=== PATIENT | female | born 1995 | race Two or more races ===

== ENCOUNTER 2021-02-15 14:15 | Outpatient (CLI) | payer OTHER | END 2021-02-15 14:26 | disposition home or self-care (01) | LOC: SONOGRAMA 14:15 | PROVIDERS: ATTEND Surgery | DX: R19.09 Other intra-abdominal and pelvic swelling, mass and lump (principal) ==

== ENCOUNTER 2021-05-29 08:00 | Outpatient (CLI) | payer OTHER | END 2021-05-29 08:30 | disposition home or self-care (01) | LOC: PPH VACUNA 08:00 | PROVIDERS: ATTEND Emergency Medicine Pediatric Emergency Medicine | DX: Z23 Encounter for immunization (principal) ==

== ENCOUNTER 2021-06-07 08:00 | Outpatient (CLI) | payer OTHER | END 2021-06-07 08:30 | disposition home or self-care (01) | LOC: PPH VACUNA 08:00 | PROVIDERS: ATTEND Emergency Medicine Pediatric Emergency Medicine | DX: Z23 Encounter for immunization (principal) ==

== ENCOUNTER 2021-08-11 07:45 | Outpatient (CLI) | payer OTHER | END 2021-08-11 08:14 | disposition home or self-care (01) | LOC: LAB 07:45 | PROVIDERS: ATTEND Pediatrics Pediatric Gastroenterology | DX: Z03.818 Encounter for observation for suspected exposure to other biological agents ruled out (principal) ==

== ENCOUNTER 2021-11-13 07:25 | Outpatient (CLI) | payer OTHER | END 2021-11-13 07:31 | disposition home or self-care (01) | LOC: LAB 07:25 | PROVIDERS: ATTEND Obstetrics & Gynecology | DX: D50.8 Other iron deficiency anemias (principal); N39.0 Urinary tract infection, site not specified; E03.8 Other specified hypothyroidism; E55.9 Vitamin D deficiency, unspecified; E78.01 Familial hypercholesterolemia; A63.8 Other specified predominantly sexually transmitted diseases ==

== ENCOUNTER 2021-11-13 14:52 | Outpatient (CLI) | payer OTHER | END 2021-11-13 14:56 | disposition home or self-care (01) | LOC: SONOGRAMA 14:52 | PROVIDERS: ATTEND Obstetrics & Gynecology | DX: N64.4 Mastodynia (principal) ==

== ENCOUNTER 2022-01-02 10:24 | Outpatient (CLI) | payer OTHER | END 2022-01-02 10:34 | disposition home or self-care (01) | LOC: RAD 10:24 | PROVIDERS: ATTEND General Practice | DX: M54.2 Cervicalgia (principal); M54.9 Dorsalgia, unspecified ==

== ENCOUNTER 2022-03-15 07:34 | Outpatient (CLI) | payer OTHER | END 2022-03-15 07:39 | disposition home or self-care (01) | LOC: LAB 07:34 | PROVIDERS: ATTEND General Practice | DX: R19.09 Other intra-abdominal and pelvic swelling, mass and lump (principal); Z01.818 Encounter for other preprocedural examination ==

== ENCOUNTER 2022-03-15 08:20 | Outpatient (CLI) | payer OTHER | END 2022-03-15 08:27 | disposition home or self-care (01) | LOC: RAD 08:20 | PROVIDERS: ATTEND Surgery | DX: Z01.818 Encounter for other preprocedural examination (principal); R19.09 Other intra-abdominal and pelvic swelling, mass and lump ==

== ENCOUNTER 2022-03-21 06:39 | Day surgery (SDC) | payer OTHER ==
[2022-03-21] MEDS ORDERED: ULTRACET PO (09:35)
== END 2022-03-21 10:45 | disposition home or self-care (01) ==
LOC: CIR.AMB 06:39
PROVIDERS: ATTEND Surgery
DX: L02.214 Cutaneous abscess of groin (principal); Z20.822 Contact with and (suspected) exposure to COVID-19

== ENCOUNTER 2022-06-01 08:00 | Outpatient (CLI) | payer OTHER ==
[~2022-06-01 08:00] MED LIST: ULTRACET PO
== END 2022-06-01 08:05 | disposition home or self-care (01) ==
LOC: PPH VACUNA 08:00
PROVIDERS: ATTEND Emergency Medicine Pediatric Emergency Medicine
DX: Z23 Encounter for immunization (principal)

== ENCOUNTER 2022-08-01 07:06 | Outpatient (CLI) | payer OTHER | END 2022-08-01 07:08 | disposition home or self-care (01) | LOC: LAB 07:06 | PROVIDERS: ATTEND General Practice | DX: Z00.00 Encounter for general adult medical examination without abnormal findings (principal); E78.5 Hyperlipidemia, unspecified; E55.9 Vitamin D deficiency, unspecified; R42 Dizziness and giddiness; R51.9 Headache, unspecified; E16.1 Other hypoglycemia; R10.9 Unspecified abdominal pain; F41.9 Anxiety disorder, unspecified ==

== ENCOUNTER 2023-01-24 07:31 | Outpatient (CLI) | payer OTHER | END 2023-01-24 07:38 | disposition home or self-care (01) | LOC: LAB 07:31 | PROVIDERS: ATTEND General Practice | DX: R05.9 Cough, unspecified (principal); R50.9 Fever, unspecified; Z20.822 Contact with and (suspected) exposure to COVID-19; R06.02 Shortness of breath ==

== ENCOUNTER 2023-01-31 15:13 | Outpatient (CLI) | payer OTHER | END 2023-01-31 15:30 | disposition home or self-care (01) | LOC: LAB 15:13 | PROVIDERS: ATTEND General Practice | DX: R07.0 Pain in throat (principal) ==

== ENCOUNTER 2023-06-07 06:51 | Outpatient (CLI) | payer OTHER | END 2023-06-07 07:05 | disposition home or self-care (01) | LOC: LAB 06:51 | PROVIDERS: ATTEND Obstetrics & Gynecology | DX: C56.2 Malignant neoplasm of left ovary (principal) ==

== ENCOUNTER 2023-06-12 02:30 | Outpatient (CLI) | payer OTHER | END 2023-06-12 02:40 | disposition home or self-care (01) | LOC: PPH VACUNA 02:30 | PROVIDERS: ATTEND Emergency Medicine Pediatric Emergency Medicine | DX: Z23 Encounter for immunization (principal) | CPT/HCPCS: 90686; G0008 ==

== ENCOUNTER 2023-06-19 14:58 | Outpatient (CLI) | payer OTHER | END 2023-06-19 15:42 | disposition home or self-care (01) | LOC: SONOGRAMA 14:58 | PROVIDERS: ATTEND Surgery | DX: Z12.31 Encounter for screening mammogram for malignant neoplasm of breast (principal); N60.11 Diffuse cystic mastopathy of right breast; N60.12 Diffuse cystic mastopathy of left breast ==

== ENCOUNTER 2023-09-05 07:20 | Outpatient (CLI) | payer OTHER | END 2023-09-05 07:30 | disposition home or self-care (01) | LOC: SONOGRAMA 07:20 | DX: R11.0 Nausea (principal) ==

== ENCOUNTER 2024-06-15 07:20 | Outpatient (CLI) | payer OTHER ==
[2024-06-17 23:05] LABS: chla t Negative (Negative); neiss Negative (Negative)
== END 2024-06-15 10:19 | disposition home or self-care (01) ==
LOC: LAB 07:20
DX: Z11.3 Encounter for screening for infections with a predominantly sexual mode of transmission (principal)

== ENCOUNTER 2024-07-09 04:00 | Outpatient (CLI) | payer OTHER | END 2024-07-09 04:15 | disposition home or self-care (01) | LOC: PPH VACUNA 04:00 | PROVIDERS: ATTEND Emergency Medicine Pediatric Emergency Medicine | DX: Z23 Encounter for immunization (principal) ==

== ENCOUNTER 2024-11-27 08:06 | Outpatient (CLI) | payer OTHER | END 2024-11-27 08:07 | disposition home or self-care (01) | LOC: MAMO-SONO 08:06 | PROVIDERS: ATTEND Obstetrics & Gynecology | DX: N64.4 Mastodynia (principal); Z80.3 Family history of malignant neoplasm of breast ==

== ENCOUNTER 2024-12-02 06:02 | Outpatient (CLI) | payer OTHER ==
[2024-12-02 08:01] LABS: HEMOGLOBIN 13.6 g/dL (12.0-15.00); MEAN CORPUSCULAR HEMOGLOBIN 29.3 pg (27.00-32.0); MEAN CORPUSCULAR HGB CONC 33.3 g/dl (32.0-36.0); PLATELET COUNT 233 K/uL (150-450); RED BLOOD COUNT 4.65 M/uL (4.00-6.00); RED CELL DISTRIBUTION WIDTH 14.1 % (11.5-14.5)
[2024-12-02 08:52] LABS: PH,URINE 7.5 (5.0-8.0); URINE APPEARANCE Clear; URINE BILIRRUBIN Negative (NEGATIVE); URINE BLOOD Negative; URINE COLOR Yellow; URINE GLUCOSE Negative (NEGATIVE); URINE KETONE Negative (NEGATIVE); URINE LEUKOCYTE Negative; URINE NITRATE Negative; URINE PROTEIN Negative (NEGATIVE)
[2024-12-02 08:56] LABS: URINE BACTERIA 375.7 uL (0.0-1933); URINE EPITHELIAL CELLS 29.4 uL (0.0-38.8); URINE RBC 24.3 uL (0.0-20.8)
[2024-12-02 09:07] LABS: ALBUMIN 4.2 gm/dL (3.4-5.0); BILIRUBIN TOTAL 0.33 mg/dL (0.3-1.2); CALCIUM 9.4 mg/dL (8.5-10.1); CHOL HDL RATIO 2.2 (0-5.0); CREATININE SERUM 0.62 mg/dL (0.55-1.02); GFR 113.02; GLOBULINA 2.8 G/DL (2.4-3.5); POTASSIUM 4.04 mEq/L (3.5-5.1)
[2024-12-03 11:11] LABS: CA 125 13.9 U/mL (0.0-38.1)
== END 2024-12-02 06:08 | disposition home or self-care (01) ==
LOC: LAB 06:02
PROVIDERS: ATTEND Obstetrics & Gynecology
DX: G89.3 Neoplasm related pain (acute) (chronic) (principal); R19.09 Other intra-abdominal and pelvic swelling, mass and lump; R74.02 Elevation of levels of lactic acid dehydrogenase [LDH]; R97.8 Other abnormal tumor markers; C56.2 Malignant neoplasm of left ovary; C56.1 Malignant neoplasm of right ovary; D50.8 Other iron deficiency anemias; N39.0 Urinary tract infection, site not specified; E03.8 Other specified hypothyroidism; E55.9 Vitamin D deficiency, unspecified; E78.01 Familial hypercholesterolemia

== ENCOUNTER 2025-03-31 15:03 | Outpatient (CLI) | payer OTHER | END 2025-03-31 15:04 | disposition home or self-care (01) | LOC: RAD 15:03 | PROVIDERS: ATTEND Orthopaedic Surgery | DX: M25.562 Pain in left knee (principal) ==

== ENCOUNTER 2025-04-20 12:20 | Outpatient (CLI) | payer OTHER ==
[2025-04-20 14:52] LABS: COVID-19 AG POSITIVE (NEGATIVE)
[2025-04-20 15:04] LABS: MYCOPLASMA PNEUMONIAE IGM NON REACTIVE (NO REACTIVE)
[2025-04-20 15:09] LABS: BASO % 0.5 % (0.1-1.2); EOS # 0.11 (0.04-0.54); EOS % 1.9 % (0.7-7.0); LYMPH # 0.72 (1.18-3.74); LYMPH % 12.2 % (19.3-53.1); MEAN PLATELET VOLUME 10.30 fl (9.4-12.4); MONO # 0.62 (0.24-0.82); MONO % 10.5 % (4.7-12.5); NEUT # 4.42 (1.56-6.13); NEUT % 74.6 % (34.0-71.1); RED CELL DISTRIBUTION WIDTH 13.1 % (11.6-14.4)
== END 2025-04-20 14:12 | disposition home or self-care (01) ==
LOC: LAB 12:20
PROVIDERS: ATTEND General Practice
DX: R50.9 Fever, unspecified (principal); Z11.52 Encounter for screening for COVID-19; R05.9 Cough, unspecified; J06.9 Acute upper respiratory infection, unspecified

== ENCOUNTER 2025-04-27 14:15 | Outpatient (CLI) | payer OTHER | END 2025-04-27 14:22 | disposition home or self-care (01) | LOC: RAD 14:15 | PROVIDERS: ATTEND Orthopaedic Surgery | DX: M25.511 Pain in right shoulder (principal); M79.672 Pain in left foot; M79.671 Pain in right foot ==

== ENCOUNTER 2025-04-28 08:45 | Outpatient (CLI) | payer OTHER | END 2025-04-28 08:49 | disposition home or self-care (01) | LOC: SONOGRAMA 08:45 | PROVIDERS: ATTEND Orthopaedic Surgery | DX: M79.672 Pain in left foot (principal) ==

== ENCOUNTER 2025-05-04 07:21 | Outpatient (CLI) | payer OTHER | END 2025-05-04 07:29 | disposition home or self-care (01) | LOC: MRI 07:21 | PROVIDERS: ATTEND Neuromusculoskeletal Medicine & OMM | DX: R42 Dizziness and giddiness (principal); H93.3X9 Disorders of unspecified acoustic nerve | CPT/HCPCS: 70553 ==